=== PATIENT | female | born 1950 | race Caucasian/White ===

== ENCOUNTER 2019-06-18 17:56 | Emergency (ER) | payer OTHER ==
[~2019-06-18] VITALS: Ht 167.6 cm; Wt 59.0 kg
[2019-06-18] MEDS ORDERED: IBUPROFEN 800800 M1 PO (18:28)
[2019-06-18] MEDS ORDERED: NORCO 5-325 TA1 EAC1 PO (18:28)
[2019-06-18] MEDS ORDERED: PERCOCET PO (19:14)
[2019-06-18 19:52] VITALS: BP 157/76
== END 2019-06-18 19:52 | disposition home or self-care (01) ==
LOC: M.ERS 17:56
DX: S59.292A Other physeal fracture of lower end of radius, left arm, initial encounter for closed fracture (principal); S52.612A Displaced fracture of left ulna styloid process, initial encounter for closed fracture; Z90.710 Acquired absence of both cervix and uterus; W17.89XA Other fall from one level to another, initial encounter; Y93.89 Activity, other specified; Y92.89 Other specified places as the place of occurrence of the external cause; Y99.8 Other external cause status